=== PATIENT | male | born 1970 | race Caucasian/White ===

== ENCOUNTER 2017-05-25 10:56 | Day surgery (SDC) | payer BC ==
--- NOTE | 2017-05-21 11:59 | HP ---
CC: Dr. Bueno * PREOPERATIVE HISTORY AND PHYSICAL: DATE OF ADMISSION: 05/25/17 This patient is scheduled for same-day surgery admission by Dr. Dodd on Sunday , 05/25/17. ATTENDING PHYSICIAN: Tushar Dodd MD * (dictated by Laura Germain NP). CHIEF COMPLAINT: Epigastric hernia. HISTORY OF PRESENT ILLNESS: The patient is a 47-year-old male known to Dr. Dodd after undergoing a laparoscopic-assisted sigmoid colectomy with protective loop ileostomy in October 2013 with reversal of the ileostomy, January 2014. More recently, he has noticed an area on the upper abdomen that has been bulging. The patient has been doing different jobs, which include lifting. He had been lifting a stage equipment when he noticed a bulge above the umbilicus that was very painful. The pain resolved, but he has recurrence of this discomfort from time to time. He denies any signs or symptoms to suggest incarceration or strangulation. Dr. Dodd examined the patient and notes well- healed surgical incisions in the lower midline and the old ileostomy site; just above the umbilicus, he has an obvious epigastric hernia that is not reducible and he also has a rectus diastasis just superior to the epigastric hernia. Dr. Dodd has recommended open epigastric hernia repair with mesh as a same-day surgery procedure and has described the nature of the procedure, the rationale for the procedure, and the relevant risks and benefits. Today I explained the typical postoperative care and recovery and recommended the use of an abdominal binder postoperatively. The patient has had a chance to ask questions and stated that he understands the information and is satisfied with the answers given to his questions. He will sign surgical consent on the day of surgery. PAST MEDICAL HISTORY: Significant for acute diverticulitis; smoking and obesity. PAST SURGICAL HISTORY: Laparoscopic-assisted sigmoid colectomy with protective loop ileostomy by Dr. Dodd, October 2013 with reversal of the ileostomy, January 2014. MEDICATIONS: None currently. ALLERGIES: Limited to a food allergy with eggplant. No known drug allergies. FAMILY HISTORY: No known anesthesia complications, bleeding tendencies or clotting disorders. The patient's father and maternal grandparents have a history of diabetes. SOCIAL HISTORY: He is single. 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 REVIEW OF SYSTEMS: Constitutional: No fevers, chills or excessive fatigue. He is intentionally trying to lose weight. Endocrine: No diabetes or thyroid disease. Hematologic: No easy bruising or bleeding. No history of blood transfusions. Respiratory: No dyspnea on exertion, no chronic cough. He is a smoker. Cardiovascular: No anginal chest pain or palpitations. Gastrointestinal: No nausea, vomiting, diarrhea or constipation. No change in bowel habits. Genitourinary: No dysuria. Musculoskeletal: No complaints of joint or back pain. Neurologic: No headache, blurred vision. No areas of focal weakness or numbness. General: No history of deep vein thrombosis or pulmonary embolism; he states that after receiving general anesthesia in 2013, he felt that his memory was somewhat impaired. PHYSICAL EXAMINATION GENERAL SURVEY: The patient is a 47-year-old obese male, in no acute distress. VITAL SIGNS: Height 71 inches, weight 250 pounds, body mass index 34.9. Blood pressure 132/80, pulse 80 and regular, respiratory rate 18, and temperature 97.5 tympanic. HEENT: Benign. NECK: Supple. No cervical lymphadenopathy. BACK: No CVA tenderness. LUNGS: Breath sounds bilaterally clear and equal. HEART: Regular rate and rhythm. No murmurs or rubs appreciated. ABDOMEN: Obese, soft, nondistended, nontender throughout. Well-healed surgical incisions, lower midline and at old ileostomy site; just above the umbilicus, there is an obvious epigastric hernia and he also has a rectus diastasis. No other obvious masses or organomegaly, but exam is limited by body habits. No skin fold rash. GENITALIA AND RECTAL EXAMS: Deferred. EXTREMITIES: Warm without edema or skin ulceration. NEUROLOGIC: Alert and oriented x3. Steady gait. SKIN: Warm, dry, and intact. IMPRESSION: Epigastric hernia. PLAN: Same-day surgery admission to Dr. Dodd's service on 05/25/17, for open epigastric hernia repair with mesh. LAURA GERMAIN NP [id number]/[facility] #: [id number] MTDNia
[~2017-05-25 10:56] MED LIST: Buffered Lidocaine 0.9% SYRIN* 5 ML/SYR SYRINGE INTRADERM ONE; DiMENhydriNATE IV* 50 MG/ML VIAL IV PUSH PRN; Famotidine IV* 10 MG/ML 2 ML (20 mg) IV ONE; Morphine INJ* 2 MG/ML 1 ML CARPUJECT IV PRN; PROCHLORPERAZINE INJ 5 MG/ML 2 ML VIAL IV PRN; Scopolamine 1.5 mg* PATCH TRANSDERM PRN; fentaNYL* 50 MCG/ML 2 ML VIAL (100 MCG VIAL) IV PRN; oxyCODONE/Acetamin 5/325 MG* TAB PO PRN
[2017-05-25] MEDS ORDERED: Buffered Lidocaine 0.9% SYRIN* 5 ML/SYR SYRINGE ONE (11:17)
[2017-05-25] MEDS ORDERED: Famotidine IV* 10 MG/ML 2 ML (20 mg) ONE (11:17)
[2017-05-25] MEDS ORDERED: ceFAZolin 2 GM PREMIX (*) 2 GM/50 ML BAG IVPB ONE (11:17)
[2017-05-25] MEDS ORDERED: KETAMINE HCL* 50 MG/ML 10 ML VIAL ONE (11:53)
[2017-05-25] MEDS ORDERED: fentaNYL* 50 MCG/ML 5 ML VIAL (250 MCG VIAL) ONE (11:53)
[2017-05-25] MEDS ORDERED: Atracurium* 10 MG/ML 10 ML VIAL ONE (11:53)
[2017-05-25] MEDS ORDERED: Midazolam* 1 MG/ML 10 ML VIAL (10 MG) ONE (11:54)
[2017-05-25] MEDS ORDERED: Lidocaine 1.5% EPI 1:200,000* 30 ML SDV ONE (12:55)
[2017-05-25] MEDS ORDERED: Bupivacaine 0.25% SDV* 30 ML ONE (12:55)
[2017-05-25] MEDS ORDERED: Albuterol 2.5 MG/3 ML NEB.SOL* (0.083%) ONE (12:57)
[2017-05-25] MEDS ORDERED: Dexamethasone IV* 4 MG/ML 1 ML (4 MG) ONE (13:42)
[2017-05-25] MEDS ORDERED: Glycopyrrolate IV* 0.2 MG/ML 1 ML VIAL ONE (13:42)
[2017-05-25] MEDS ORDERED: Ondansetron INJ* 2 MG/ML VIAL ONE (13:42)
[2017-05-25] MEDS ORDERED: Neostigmine Methylsulfate* 2 MG/2 ML SYRINGE ONE (13:42)
[2017-05-25] MEDS ORDERED: Ketorolac INJ* 30 MG/ML 1 ML VIAL ONE (13:42)
[2017-05-25] MEDS ORDERED: Propofol* 10 MG/ML 20 ML BTL IV PUSH ONE (13:42)
--- NOTE | 2017-05-25 13:49 | BRIEFOPN ---
Brief Operative Note - Surgery Procedures: Procedures Pre-OP Diagnoses: epigastric hernia Post-op Diagnosis: same Procedure: open epigastric hernia repair with mesh Surgeon: Ju Asst: none Anethesia: MANJEET [place] EBL: minimal IVF: minimal Specimen: none Drains: none
[2017-05-25] MEDS ORDERED: Phenylephrine IV* 40 MCG/ML 10 ML SYRINGE ONE (13:58)
[2017-05-25] MEDS ORDERED: Lidocaine 2% PF* 10 ML AMP ONE (13:58)
[2017-05-25] MEDS ORDERED: Lidocaine 2% PF * 5 ML VIAL ONE (13:58)
[2017-05-25] MEDS ORDERED: EPHEDrine (Pressors)* 50 MG/ML VIAL ONE (13:58)
[2017-05-25] MEDS ORDERED: Metoprolol Tartrate IV* 1 MG/ML 5 ML VIAL ONE (13:58)
[2017-05-25 15:15] VITALS: BP 124/69
--- NOTE | 2017-05-26 01:26 | OP ---
DATE OF OPERATION: 05/25/17 - [facility] DATE OF : 70 SURGEON: Tushar Dodd MD [employer]IDE SAL[employer] ACCOUNT EXECUTIVE: ANESTHESIOLOGIST: Ho Regan MD ANESTHESIA: General. PRE-OP DIAGNOSIS: Epigastric hernia. POST-OP DIAGNOSIS: Epigastric hernia. OPERATIVE PROCEDURE: Open epigastric hernia with mesh. ESTIMATED BLOOD LOSS: Minimal. FLUIDS: Minimal crystalloid fluid given. SPECIMENS: None. DRAINS: None. DESCRIPTION OF PROCEDURE: Mr. Zamora was identified in the preoperative area, shaved, abdomen marked, and consent signed. The patient was taken to the operating room and placed on the operating room table in the supine position. Preoperative antibiotics were given and sequential devices were placed on bilateral lower extremities. General anesthesia was induced. Vivas catheter was inserted and the patient's abdomen was prepped and draped in a standard surgical fashion. Time-out was performed. An upper midline incision was made, this was deepened down to hernia sac. We isolated the fascia around the full sac itself and noted the hernia to be approximately 2 cm. It was easily reducible. We made a pocket underneath the anterior fascia that would encompass a mesh. A 6.4-cm bilayer mesh was then inserted into the preperitoneal space. It was allowed to unfurl and 0 Vicryl sutures were used laterally to attach it to the fascia laterally that had been cleared off and then we reapproximated the fascial layers at the midline in an up-and-down fashion minimally with 0 Polysorb sutures. The wound was then irrigated and reapproximated with 2-0 Vicryl sutures followed by 4-0 Monocryl subcuticular suture. Steri-Strips and sterile dressings were applied. The patient tolerated the procedure well and was transferred to the PACU in stable condition. [id number]/[facility] #: [id number] [facility]
[2017-05-28] MEDS ORDERED: Scopolamine PATCH Remove* 1 NOTE MISC PATCH OFF ONE (05:59)
== END 2017-05-25 15:17 | disposition home or self-care (01) ==
LOC: OR 10:56
PROVIDERS: ATTEND Surgery
DX: K43.9 Ventral hernia without obstruction or gangrene (principal); F17.210 Nicotine dependence, cigarettes, uncomplicated; E66.9 Obesity, unspecified; F10.21 Alcohol dependence, in remission; Z98.890 Other specified postprocedural states
CPT/HCPCS: C1781; J0690; J1100; J1885; J2001; J2250; J2405; J2704; J3010; J3490